=== PATIENT | female | born 2000 | race African-American/Black ===

== ENCOUNTER 2023-04-30 02:40 | Emergency (ER) | payer SELFPAY ==
[~2023-04-30] VITALS: Ht 167.6 cm; Wt 60.0 kg
[2023-04-30 02:43] VITALS: BP 118/78
== END 2023-04-30 03:40 | disposition left against medical advice (07) ==
LOC: ER 02:40
DX: Z53.21 Procedure and treatment not carried out due to patient leaving prior to being seen by health care provider (principal)
CPT/HCPCS: 99281